=== PATIENT | male | born 1945 | race Caucasian/White ===

== ENCOUNTER 2018-03-17 10:16 | Inpatient (IN) ==
[2018-03-17] MEDS ORDERED: metroNIDAZOLE INJ 500 MG in PREMIX 1 EACH IV ONE (11:22)
[2018-03-17] MEDS ORDERED: ceFAZolin 1,000 MG in SYRINGE 1 EACH IV ONE (11:22)
[2018-03-17] MEDS ORDERED: EPINEPHrine 1 MG/ML VIAL ONE (11:29)
[2018-03-17] MEDS ORDERED: BUPIVACAINE MPF 0.25% 30 ML VIAL ONE (11:30)
[2018-03-17 11:37] LABS: Lactic Acid 0.8 MMOL/L (0.4-2.0)
[2018-03-17] MEDS: LACTATED RINGERS 1,000 ML IV SCH ×3 (11:59→15:44)
[2018-03-17] MEDS ORDERED: ceFAZolin 1,000 MG VIAL ONE (12:06)
[2018-03-17] MEDS ORDERED: ACETAMINOPHEN 325 MG TABLET PO PRN (13:32)
[2018-03-17] MEDS ORDERED: ACETAMINOPHEN INJ 1,000 MG in PREMIX 1 EACH IV ONE (13:39)
[2018-03-17] MEDS ORDERED: ACETAMINOPHEN 1,000 MG/100 ML VIAL IV ONE (13:42)
[2018-03-17] MEDS ORDERED: MEPERIDINE 25 MG/1 ML VIAL ONE (13:42)
[2018-03-17] MEDS ORDERED: PROPOFOL 200 MG/20 ML VIAL IV ONE (13:45)
[2018-03-17] MEDS ORDERED: MIDAZOLAM 2 MG/2 ML VIAL ONE (13:45)
[2018-03-17] MEDS ORDERED: DESFLURANE 1 UNIT/15 MINUTE INH ONE (13:45)
[2018-03-17] MEDS ORDERED: GLYCOPYRROLATE 0.4 MG/2 ML VIAL ONE (13:46)
[2018-03-17] MEDS ORDERED: LACTATED RINGERS 1,000 ML IV ONE (13:46)
[2018-03-17] MEDS ORDERED: ROCURONIUM 100 MG/10 ML VIAL IV ONE (13:46)
[2018-03-17] MEDS ORDERED: NEOSTIGMINE 10 MG/10 ML VIAL ONE (13:46)
[2018-03-17] MEDS ORDERED: ONDANSETRON 4 MG/2 ML VIAL IV PRN (13:53)
[2018-03-17] MEDS ORDERED: HYDROmorphone 2 MG/1 ML VIAL IV PRN (13:53)
[2018-03-17] MEDS ORDERED: MEPERIDINE 25 MG/1 ML VIAL IV PRN (13:53)
[2018-03-17] MEDS ORDERED: KETOROLAC 30 MG/1 ML VIAL IM PRN (15:22)
[2018-03-17] MEDS: DEXTROSE 5% NACL 0.45% 1,000 ML IV SCH ×2 (15:44→23:09)
[2018-03-17] MEDS: PIPERACILLIN/TAZOBACTAM 3,375 MG in SODIUM CHLORIDE 0.9% 100 ML IV SCH ×2 (16:55→23:25)
[2018-03-18] MEDS: ONDANSETRON 4 MG/2 ML VIAL IV PRN ×2 (03:07→16:41)
[2018-03-18] MEDS: MORPHINE 4 MG/1 ML VIAL IV PRN ×2 (03:07→16:41)
[2018-03-18 06:53] LABS: Basophils % 0.1 % (0.0-0.8); Eosinophils % 0.3 % (0.00-10.9); Hematocrit 28.5 VOL% (42.0-52.0); Hemoglobin 9.9 GM/DL (14.0-18.0); Immature Granulocytes % 0.5 %; Immature Granulocytes Absolute 0.06 #; Lymphocytes # 1.4 10*3/uL (1.4-4.0); Lymphocytes % 11.4 % (21.2-54.2); Mean Corpuscular HGB Conc 34.7 GM/DL (32-36); Mean Corpuscular Hemoglobin 32 PG (27-34); Mean Corpuscular Volume 91.1 FL (87-102); Mean Platelet Volume 9.1 FL (9.6-12.0); Monocytes # 0.7 10*3/uL (0.11-0.8); Neutrophils # 9.8 10*3/uL (1.4-7.4); Neutrophils % 81.7 % (38.7-73.9); Platelet Count 265 T/CUMM (130-400); Red Blood Count 3.13 MC/CUMM (3.8-5.5); Red Cell Distribution Width 13.9 % (9.3-17.3); White Blood Count 11.9 T/CUMM (4-12)
[2018-03-18 07:26] LABS: Albumin 2.4 G/DL (3.4-5.0); Bilirubin,Total 1.3 MG/DL (0.2-1.0); Calcium 7.4 MG/DL (8.5-10.1); Osmolality,Calculated 282.7 MOS/KG (273-304); Potassium 3.9 MMOL/L (3.5-5.1); Total Protein 5.5 G/DL (6.4-8.3)
[2018-03-18] MEDS: DEXTROSE 5% NACL 0.45% 1,000 ML IV SCH ×3 (07:26→22:50)
[2018-03-18] MEDS: PIPERACILLIN/TAZOBACTAM 3,375 MG in SODIUM CHLORIDE 0.9% 100 ML IV SCH ×3 (08:47→22:50)
[2018-03-18] MEDS: PANTOPRAZOLE 40 MG TABLET PO SCH (08:57)
[2018-03-19] MEDS: ONDANSETRON 4 MG/2 ML VIAL IV PRN (01:31)
[2018-03-19] MEDS: MORPHINE 4 MG/1 ML VIAL IV PRN ×2 (01:32→13:20)
[2018-03-19 05:27] LABS: Basophils % 0.1 % (0.0-0.8); Eosinophils # 0.4 10*3/uL (0.0-0.87); Eosinophils % 2.9 % (0.00-10.9); Hematocrit 26.3 VOL% (42.0-52.0); Hemoglobin 8.7 GM/DL (14.0-18.0); Immature Granulocytes % 0.5 %; Immature Granulocytes Absolute 0.07 #; Lymphocytes # 1.6 10*3/uL (1.4-4.0); Lymphocytes % 12.4 % (21.2-54.2); Mean Corpuscular HGB Conc 33.1 GM/DL (32-36); Mean Corpuscular Hemoglobin 31 PG (27-34); Mean Corpuscular Volume 94.3 FL (87-102); Mean Platelet Volume 9.5 FL (9.6-12.0); Monocytes % 7.8 % (1.7-12.7); Neutrophils # 9.7 10*3/uL (1.4-7.4); Neutrophils % 76.3 % (38.7-73.9); Platelet Count 278 T/CUMM (130-400); Red Blood Count 2.79 MC/CUMM (3.8-5.5); Red Cell Distribution Width 13.5 % (9.3-17.3); White Blood Count 12.8 T/CUMM (4-12)
[2018-03-19] MEDS: DEXTROSE 5% NACL 0.45% 1,000 ML IV SCH ×3 (07:07→23:06)
[2018-03-19] MEDS: PIPERACILLIN/TAZOBACTAM 3,375 MG in SODIUM CHLORIDE 0.9% 100 ML IV SCH ×3 (07:37→23:06)
[2018-03-19] MEDS: PANTOPRAZOLE 40 MG TABLET PO SCH (08:30)
[2018-03-19 10:12] LABS: Albumin 2.5 G/DL (3.4-5.0); Bilirubin,Total 0.6 MG/DL (0.2-1.0); Calcium 8.3 MG/DL (8.5-10.1); Osmolality,Calculated 279.4 MOS/KG (273-304); Total Protein 5.8 G/DL (6.4-8.3)
[2018-03-19] MEDS: ALBUTEROL/IPRATROPIUM 3 ML NEB RESP TX SCH ×3 (12:40→20:15)
[2018-03-20 05:33] LABS: Basophils % 0.3 % (0.0-0.8); Eosinophils # 0.4 10*3/uL (0.0-0.87); Eosinophils % 5.9 % (0.00-10.9); Hematocrit 26.9 VOL% (42.0-52.0); Hemoglobin 9.2 GM/DL (14.0-18.0); Immature Granulocytes % 0.7 %; Immature Granulocytes Absolute 0.05 #; Lymphocytes # 1.2 10*3/uL (1.4-4.0); Lymphocytes % 16.3 % (21.2-54.2); Mean Corpuscular HGB Conc 34.2 GM/DL (32-36); Mean Corpuscular Hemoglobin 32 PG (27-34); Mean Corpuscular Volume 92.1 FL (87-102); Mean Platelet Volume 9.5 FL (9.6-12.0); Monocytes # 0.7 10*3/uL (0.11-0.8); Monocytes % 8.7 % (1.7-12.7); Neutrophils # 5.1 10*3/uL (1.4-7.4); Neutrophils % 68.1 % (38.7-73.9); Platelet Count 313 T/CUMM (130-400); Red Blood Count 2.92 MC/CUMM (3.8-5.5); Red Cell Distribution Width 13.7 % (9.3-17.3); White Blood Count 7.5 T/CUMM (4-12)
[2018-03-20 06:11] LABS: Albumin 2.4 G/DL (3.4-5.0); Bilirubin,Total 1.1 MG/DL (0.2-1.0); Calcium 8.4 MG/DL (8.5-10.1)
[2018-03-20 06:12] LABS: Osmolality,Calculated 280.4 MOS/KG (273-304); Potassium 4.1 MMOL/L (3.5-5.1)
[2018-03-20] MEDS: PIPERACILLIN/TAZOBACTAM 3,375 MG in SODIUM CHLORIDE 0.9% 100 ML IV SCH ×3 (07:25→22:52)
[2018-03-20] MEDS: DEXTROSE 5% NACL 0.45% 1,000 ML IV SCH ×2 (07:27→22:46)
[2018-03-20] MEDS: ALBUTEROL/IPRATROPIUM 3 ML NEB RESP TX SCH ×4 (07:30→19:31)
[2018-03-20] MEDS: PANTOPRAZOLE 40 MG TABLET PO SCH (15:31)
[2018-03-20] MEDS: TAMSULOSIN 0.4 MG CAPSULE PO SCH (19:26)
[2018-03-20] MEDS: LOVASTATIN 20 MG TABLET PO SCH (20:26)
[2018-03-21] MEDS: DEXTROSE 5% NACL 0.45% 1,000 ML IV SCH ×3 (05:50→22:15)
[2018-03-21] MEDS: ALBUTEROL/IPRATROPIUM 3 ML NEB RESP TX SCH ×4 (07:04→23:57)
[2018-03-21] MEDS: PIPERACILLIN/TAZOBACTAM 3,375 MG in SODIUM CHLORIDE 0.9% 100 ML IV SCH ×3 (07:12→23:20)
[2018-03-21] MEDS: hydroCHLOROthiazide 25 MG TABLET PO SCH (09:09)
[2018-03-21] MEDS: ALLOPURINOL 300 MG TABLET PO SCH (09:09)
[2018-03-21] MEDS: PANTOPRAZOLE 40 MG TABLET PO SCH (09:09)
[2018-03-21] MEDS: CLOPIDOGREL 75 MG TABLET PO SCH (09:09)
[2018-03-21] MEDS: ASPIRIN EC 81 MG TABLET PO SCH (09:09)
[2018-03-21] MEDS: ENOXAPARIN 40 MG/0.4 ML SYRINGE SUBCUT SCH (15:47)
[2018-03-21] MEDS: TAMSULOSIN 0.4 MG CAPSULE PO SCH (18:34)
[2018-03-21] MEDS: LOVASTATIN 20 MG TABLET PO SCH (21:07)
[2018-03-22 06:22] LABS: Basophils % 0.4 % (0.0-0.8); Eosinophils # 0.5 10*3/uL (0.0-0.87); Eosinophils % 6.9 % (0.00-10.9); Hematocrit 26.7 VOL% (42.0-52.0); Immature Granulocytes % 1.3 %; Lymphocytes # 1.8 10*3/uL (1.4-4.0); Lymphocytes % 23.2 % (21.2-54.2); Mean Corpuscular HGB Conc 33.7 GM/DL (32-36); Mean Corpuscular Hemoglobin 32 PG (27-34); Mean Platelet Volume 9.1 FL (9.6-12.0); Monocytes # 0.8 10*3/uL (0.11-0.8); Neutrophils # 4.4 10*3/uL (1.4-7.4); Neutrophils % 58.2 % (38.7-73.9); Platelet Count 346 T/CUMM (130-400); Red Blood Count 2.84 MC/CUMM (3.8-5.5); Red Cell Distribution Width 13.5 % (9.3-17.3); White Blood Count 7.5 T/CUMM (4-12)
[2018-03-22 06:41] LABS: Calcium 8.5 MG/DL (8.5-10.1); Osmolality,Calculated 281.3 MOS/KG (273-304); Potassium 3.6 MMOL/L (3.5-5.1)
[2018-03-22] MEDS: ALBUTEROL/IPRATROPIUM 3 ML NEB RESP TX SCH ×4 (07:19→20:07)
[2018-03-22] MEDS: PIPERACILLIN/TAZOBACTAM 3,375 MG in SODIUM CHLORIDE 0.9% 100 ML IV SCH ×3 (09:58→23:40)
[2018-03-22] MEDS: ALLOPURINOL 300 MG TABLET PO SCH (09:59)
[2018-03-22] MEDS: PANTOPRAZOLE 40 MG TABLET PO SCH (09:59)
[2018-03-22] MEDS: hydroCHLOROthiazide 25 MG TABLET PO SCH (09:59)
[2018-03-22] MEDS: ASPIRIN EC 81 MG TABLET PO SCH (09:59)
[2018-03-22] MEDS: CLOPIDOGREL 75 MG TABLET PO SCH (09:59)
[2018-03-22] MEDS: ENOXAPARIN 40 MG/0.4 ML SYRINGE SUBCUT SCH (15:02)
[2018-03-22] MEDS: DEXTROSE 5% NACL 0.45% 1,000 ML IV SCH ×2 (16:47→16:53)
[2018-03-22] MEDS: TAMSULOSIN 0.4 MG CAPSULE PO SCH (19:29)
[2018-03-22] MEDS: LOVASTATIN 20 MG TABLET PO SCH (21:18)
[2018-03-23] MEDS: DEXTROSE 5% NACL 0.45% 1,000 ML IV SCH ×2 (01:23→08:10)
[2018-03-23] MEDS: ALBUTEROL/IPRATROPIUM 3 ML NEB RESP TX SCH ×2 (07:09→10:49)
[2018-03-23] MEDS: PIPERACILLIN/TAZOBACTAM 3,375 MG in SODIUM CHLORIDE 0.9% 100 ML IV SCH (08:34)
[2018-03-23] MEDS: CLOPIDOGREL 75 MG TABLET PO SCH (08:34)
[2018-03-23] MEDS: hydroCHLOROthiazide 25 MG TABLET PO SCH (08:34)
[2018-03-23] MEDS: ALLOPURINOL 300 MG TABLET PO SCH (08:34)
[2018-03-23] MEDS: PANTOPRAZOLE 40 MG TABLET PO SCH (08:34)
[2018-03-23] MEDS: ASPIRIN EC 81 MG TABLET PO SCH (08:34)
[2018-03-23] MEDS ORDERED: DOCUSATE SODIUM 100 MG CAPSULE PO SCH (09:00)
[2018-03-23 11:20] VITALS: BP 137/64
== END 2018-03-23 13:15 | disposition home or self-care (01) | DRG 330 ==
LOC: EDUNIT# → EDBD → N.ED 10:16 → N.SDS 11:42 → N.3E 11:54
PROVIDERS: ADMIT Surgery; ATTEND Surgery

== ENCOUNTER 2021-12-20 11:19 | Observation (INO) ==
[2021-12-20 16:33] LABS: Basophils % 0.3 % (0.0-0.8); Eosinophils # 0.2 10*3/uL (0.0-0.87); Eosinophils % 2.2 % (0.00-10.9); Hematocrit 36.6 VOL% (42.0-52.0); Hemoglobin 12.3 GM/DL (14.0-18.0); Immature Granulocytes % 0.6 %; Immature Granulocytes Absolute 0.05 #; Lymphocytes # 1.7 10*3/uL (1.4-4.0); Lymphocytes % 19.4 % (21.2-54.2); Mean Corpuscular HGB Conc 33.6 GM/DL (32-36); Mean Corpuscular Volume 96.3 FL (87-102); Mean Platelet Volume 8.6 FL (9.6-12.0); Monocytes # 1.2 10*3/uL (0.11-0.8); Monocytes % 13.7 % (1.7-12.7); Neutrophils % 63.8 % (38.7-73.9); Platelet Count 305 T/CUMM (130-400); Red Cell Distribution Width 13.6 % (9.3-17.3); White Blood Count 8.8 T/CUMM (4-12)
[2021-12-20 16:42] LABS: RBC,Urine 1 /HPF (0-4)
[2021-12-20 16:44] LABS: Bilirubin,Urine Negative (Negative); Blood, Urine Negative (Negative); Glucose,Urine (UA) Negative (Negative); Ketones,Urine Negative (Negative); Nitrite,Urine Negative (Negative); Protein,Urine Negative (Negative); Urine Appearance Clear (Clear); Urine Color Yellow (Yellow); Urine Specific Gravity 1.015 (1.001-1.035); Urine Urobilinogen 0.2 eU/dL (<2.0); Urine pH 5.5 (4.5-8.0)
[2021-12-20 16:53] LABS: Albumin 3.5 G/DL (3.4-5.0); Bilirubin,Total 0.4 MG/DL (0.20-1.00); Calcium 9.4 MG/DL (8.5-10.1); Osmolality,Calculated 278.5 MOS/KG (273-304); Potassium 3.8 MMOL/L (3.5-5.1); Total Protein 7.3 G/DL (6.4-8.2)
[2021-12-20] MEDS ORDERED: HYDROmorphone 1 MG/1 ML SYRINGE IV PRN (19:32)
[2021-12-20] MEDS ORDERED: ACETAMINOPHEN 325 MG TABLET PO PRN (19:32)
[2021-12-20] MEDS ORDERED: ONDANSETRON 4 MG/2 ML VIAL IV PRN ×2 (19:32)
[2021-12-20] MEDS: PIPERACILLIN/TAZOBACTAM 3,375 MG in SODIUM CHLORIDE 0.9% 100 ML IV SCH (20:44)
[2021-12-20] MEDS ORDERED: TAMSULOSIN 0.4 MG CAPSULE PO ONE (21:00)
[2021-12-20] MEDS ORDERED: SIMVASTATIN 20 MG TABLET PO SCH (21:00)
[2021-12-20] MEDS: ATORVASTATIN 40 MG TABLET PO SCH (22:32)
[2021-12-20] MEDS: SODIUM CHLORIDE 0.9% 1,000 ML IV SCH (22:33)
[2021-12-20] MEDS: FERROUS SULFATE 325 MG TABLET PO SCH (23:09)
[2021-12-20] MEDS: VANCOMYCIN 125 MG CAPSULE PO SCH (23:19)
[2021-12-21 04:51] LABS: Basophils % 0.5 % (0.0-0.8); Eosinophils # 0.3 10*3/uL (0.0-0.87); Eosinophils % 3.1 % (0.00-10.9); Hematocrit 39.9 VOL% (42.0-52.0); Hemoglobin 13.2 GM/DL (14.0-18.0); Immature Granulocytes % 0.3 %; Immature Granulocytes Absolute 0.03 #; Lymphocytes % 33.4 % (21.2-54.2); Mean Corpuscular HGB Conc 33.1 GM/DL (32-36); Mean Corpuscular Volume 96.8 FL (87-102); Mean Platelet Volume 8.7 FL (9.6-12.0); Monocytes # 1.1 10*3/uL (0.11-0.8); Monocytes % 12.2 % (1.7-12.7); Neutrophils % 50.5 % (38.7-73.9); Platelet Count 312 T/CUMM (130-400); Red Blood Count 4.12 MC/CUMM (3.8-5.5); Red Cell Distribution Width 13.3 % (9.3-17.3); White Blood Count 8.9 T/CUMM (4-12)
[2021-12-21] MEDS: PIPERACILLIN/TAZOBACTAM 3,375 MG in SODIUM CHLORIDE 0.9% 100 ML IV SCH (05:33)
[2021-12-21] MEDS: SODIUM CHLORIDE 0.9% 1,000 ML IV SCH ×2 (05:34→16:28)
[2021-12-21] MEDS: VANCOMYCIN 125 MG CAPSULE PO SCH ×4 (05:40→23:39)
[2021-12-21] MEDS: PANTOPRAZOLE 40 MG VIAL IV SCH (05:46)
[2021-12-21] MEDS ORDERED: TAMSULOSIN 0.4 MG CAPSULE PO SCH ×2 (09:00→21:00)
[2021-12-21] MEDS ORDERED: hydroCHLOROthiazide 12.5 MG CAPSULE PO SCH (09:00)
[2021-12-21] MEDS: diphenhydrAMINE CAP 25 MG CAPSULE PO SCH (09:24)
[2021-12-21] MEDS: EZETIMIBE 10 MG TABLET PO SCH (09:24)
[2021-12-21] MEDS: ISOSORBIDE MONONITRATE 30 MG TABLET PO SCH (09:24)
[2021-12-21] MEDS: METOPROLOL SUCCINATE XL 25 MG TABLET PO SCH (09:25)
[2021-12-21] MEDS: FERROUS SULFATE 325 MG TABLET PO SCH ×2 (09:25→22:08)
[2021-12-21] MEDS: ATORVASTATIN 40 MG TABLET PO SCH (20:33)
[2021-12-21] MEDS ORDERED: allopurinoL 300 MG TABLET PO SCH (21:00)
[2021-12-21] MEDS ORDERED: DOCUSATE SODIUM 100 MG CAPSULE PO SCH (21:00)
[2021-12-21] MEDS ORDERED: OLMESARTAN 5 MG TABLET PO SCH (21:00)
[2021-12-22] MEDS: PANTOPRAZOLE 40 MG VIAL IV SCH (05:03)
[2021-12-22] MEDS: SODIUM CHLORIDE 0.9% 1,000 ML IV SCH (05:07)
[2021-12-22 05:10] LABS: Basophils % 0.4 % (0.0-0.8); Eosinophils # 0.2 10*3/uL (0.0-0.87); Eosinophils % 3.6 % (0.00-10.9); Hematocrit 32.8 VOL% (42.0-52.0); Immature Granulocytes % 0.7 %; Immature Granulocytes Absolute 0.05 #; Lymphocytes # 1.9 10*3/uL (1.4-4.0); Lymphocytes % 27.7 % (21.2-54.2); Mean Corpuscular HGB Conc 33.5 GM/DL (32-36); Mean Corpuscular Volume 96.2 FL (87-102); Mean Platelet Volume 8.7 FL (9.6-12.0); Monocytes # 0.9 10*3/uL (0.11-0.8); Monocytes % 13.2 % (1.7-12.7); Neutrophils % 54.4 % (38.7-73.9); Platelet Count 291 T/CUMM (130-400); Red Blood Count 3.41 MC/CUMM (3.8-5.5); Red Cell Distribution Width 13.4 % (9.3-17.3); White Blood Count 6.7 T/CUMM (4-12)
[2021-12-22 05:27] LABS: Calcium 8.6 MG/DL (8.5-10.1); Osmolality,Calculated 280.4 MOS/KG (273-304); Potassium 3.7 MMOL/L (3.5-5.1)
[2021-12-22] MEDS: VANCOMYCIN 125 MG CAPSULE PO SCH (05:39)
[2021-12-22 07:49] VITALS: BP 127/56
[2021-12-22] MEDS: diphenhydrAMINE CAP 25 MG CAPSULE PO SCH (08:53)
[2021-12-22] MEDS: EZETIMIBE 10 MG TABLET PO SCH (08:53)
[2021-12-22] MEDS: METOPROLOL SUCCINATE XL 25 MG TABLET PO SCH (08:53)
[2021-12-22] MEDS: ISOSORBIDE MONONITRATE 30 MG TABLET PO SCH (08:53)
[2021-12-22] MEDS: FERROUS SULFATE 325 MG TABLET PO SCH (09:01)
== END 2021-12-22 11:30 | disposition home or self-care (01) ==
LOC: N.ED 11:19 → N.3E 11:19
PROVIDERS: ADMIT Surgery; ATTEND Surgery